=== PATIENT | female | born 1945 | race Two or more races ===

== ENCOUNTER 2019-05-22 19:21 | Emergency (ER) | payer OTHER ==
[~2019-05-22] VITALS: Ht 157.5 cm; Wt 90.7 kg
[2019-05-22] MEDS ORDERED: LIPITOR40 MG (19:48)
[2019-05-22] MEDS ORDERED: SYNTHROID75 MCG (19:48)
== END 2019-05-22 22:13 | disposition home or self-care (01) ==
LOC: ER 19:21
DX: E16.1 Other hypoglycemia (principal); R42 Dizziness and giddiness

== ENCOUNTER 2023-01-10 08:28 | Outpatient (CLI) | payer OTHER ==
[~2023-01-10 08:28] MED LIST: LIPITOR40 MG; SYNTHROID75 MCG
== END 2023-01-10 08:30 | disposition home or self-care (01) ==
LOC: SONOGRAMA 08:28
PROVIDERS: ATTEND Pathology Anatomic Pathology & Clinical Pathology
DX: D34 Benign neoplasm of thyroid gland (principal); E04.9 Nontoxic goiter, unspecified